=== PATIENT | male | born 1950 | race Caucasian/White ===

== ENCOUNTER → 2017-01-30 | Outpatient (CLI) | payer MEDICARE ==
[~2017-01-30] MED LIST: ACET-1600 PO; ETAN50DI INJ; IBUP400T PO; TRAM50TA2 PO
== END | disposition home or self-care (01) ==
LOC: STAR 10:23
PROVIDERS: ATTEND Orthopaedic Surgery
DX: Z01.818 Encounter for other preprocedural examination (principal); I44.4 Left anterior fascicular block; M19.072 Primary osteoarthritis, left ankle and foot
CPT/HCPCS: 93005

== ENCOUNTER 2017-02-09 10:27 | Inpatient (IN) | payer MEDICARE ==
[~2017-02-09] VITALS: Ht 177.8 cm; Wt 80.0 kg
[2017-02-09] MEDS ORDERED: LACTATED RINGERS 1,000 ML IV SCH (12:32)
[2017-02-09 12:33] VITALS: BP 121/76
[2017-02-09] MEDS ORDERED: FENTANYL PF 250 MCG/5ML ONE ×2 (13:24→15:30)
[2017-02-09] MEDS ORDERED: MIDAZOLAM 1 MG/ML, 2ML ONE (13:24)
[2017-02-09] MEDS ORDERED: EPHEDRINE 50 MG/ML, 1ML ONE (13:54)
[2017-02-09] MEDS ORDERED: PROPOFOL 10 MG/ML, 20ML ONE (13:54)
[2017-02-09] MEDS ORDERED: CEFAZOLIN 1,000 MG ONE (13:54)
[2017-02-09] MEDS ORDERED: ONDANSETRON 2MG/ML, 2ML ONE (13:54)
[2017-02-09] MEDS ORDERED: ROPIvacaine/PF 0.2%, 100ML 550 ML (check volume) INJ ONE (14:00)
[2017-02-09] MEDS ORDERED: FENTANYL PF 100 MCG/2ML IV PRN (14:30)
[2017-02-09] MEDS ORDERED: HYDROmorphone 1 MG/ML, 1ML IV PRN (14:30)
[2017-02-09] MEDS ORDERED: MEPERIDINE/PF 25MG/0.5ML IVPush PRN (14:30)
[2017-02-09] MEDS ORDERED: ONDANSETRON 2MG/ML, 2ML IVPush PRN (14:30)
[2017-02-09] MEDS ORDERED: OXYcodone 5 MG/5 ML ORAL.SOL UDC PO PRN (14:30)
[2017-02-09] MEDS ORDERED: ACETAMINOPHEN 325 MG TABLET PO PRN (14:30)
[2017-02-09] MEDS ORDERED: FENTANYL PF 100 MCG/2ML ONE (16:24)
[2017-02-09] MEDS ORDERED: ACETAMINOPHEN 650 MG/20.3 ML UDC ONE (17:15)
[2017-02-09] MEDS ORDERED: OXYcodone 5 MG/5 ML ORAL.SOL UDC ONE (17:16)
[2017-02-09 18:59] VITALS: BP 123/70
[2017-02-09] MEDS ORDERED: CEPH-368 PO (20:25)
[2017-02-09] MEDS ORDERED: HYDR50CA PO (20:25)
== END 2017-02-09 21:10 | disposition home or self-care (01) | DRG 470 ==
LOC: ORIP 11:06 → EDSTATUS 13:00 → 4NOR 18:12
PROVIDERS: ADMIT Orthopaedic Surgery; ATTEND Orthopaedic Surgery
PROC: 0SPG04Z Removal of Internal Fixation Device from Left Ankle Joint, Open Approach (ICD-10-PCS; 2017-02-09)
PROC: 0SRG0JZ Replacement of Left Ankle Joint with Synthetic Substitute, Open Approach (ICD-10-PCS; principal; 2017-02-09 14:00)
DX: M19.072 Primary osteoarthritis, left ankle and foot (principal); M06.9 Rheumatoid arthritis, unspecified; Z88.2 Allergy status to sulfonamides; Z88.8 Allergy status to other drugs, medicaments and biological substances; Z86.73 Personal history of transient ischemic attack (TIA), and cerebral infarction without residual deficits; Z82.3 Family history of stroke; Z82.61 Family history of arthritis; Z82.49 Family history of ischemic heart disease and other diseases of the circulatory system
CPT/HCPCS: 76001; C1713; J0690; J2250; J2405; J2704; J2795; J3010; C1776; J7120